=== PATIENT | male | born 1965 | race Caucasian/White ===

== ENCOUNTER 2024-11-28 08:37 | Inpatient (IN) | payer BC, SELFPAY ==
[2024-11-28] VITALS (9 sets, daily range): BP systolic 128–163; BP diastolic 63–90; BMI 33.7
[2024-11-28] MEDS: NSS 1000 IV ×3 (04:16→21:23)
[2024-11-28 04:31] LABS: % Basophils 0.4 % (0-2); % Eosinophils 3.1 % (0-6); % Immature Granulocytes 0.4 % (0-0.5); % Lymphocytes 28.7 % (20.5-51.1); % Neutrophils 63.4 % (42.2-75.2); Absolute Eosinophils 0.3 10^3/uL (0-0.7); Absolute Monocytes 0.4 10^3/uL (0.1-0.6); Absolute Neutrophils 6.6 10^3/uL (1.4-6.5); Hematocrit 41.5 % (39.0-52.0); Hemoglobin 13.7 g/dL (13.0-18.0); Mean Corpuscular Hgb 28.2 pg (27.0-31.0); Mean Corpuscular Volume 85.6 fL (80.0-94.0); Mean Platelet Volume 11.3 fL (7.4-10.4); Nucleated Red Blood Cells % 0 % (-); Platelet Count 184 10^3/uL (130-400); Red Blood Cell Count 4.85 10^6/uL (4.70-6.10); Red Cell Dist. Width 12.3 % (11.5-14.5); White Blood Cell Count 10.5 10^3/uL (4.8-10.8)
[2024-11-28 04:39] LABS: APTT 26.2 Sec (23.4-35.0); INR 0.91; PT 12.8 Sec (11.4-14.6)
[2024-11-28 04:54] LABS: ALT (SGPT) 25 U/L (0-50); AST (SGOT) 25 U/L (17-59); Albumin 4.3 g/dl (3.5-5.0); Alkaline Phosphatase 67 U/L (38-126); Blood Urea Nitrogen 17 mg/dl (9-20); Calcium 8.2 mg/dl (8.4-10.2); Carbon Dioxide 25 mmol/L (22-30); Chloride 102 mmol/L (98-107); Estimated Creatinine Clearance 115 ml/min; Glucose 174 mg/dl (70-99); Lipase 122 U/L (23-300); Potassium 3.4 mmol/L (3.5-5.1); Sodium 140 mmol/L (135-145); Total Bilirubin 0.4 mg/dl (0.2-1.3); Total Protein 6.8 g/dl (6.3-8.2); eGFR > 60.00
[2024-11-28] MEDS: ZOFRAN 4 MG IV ×2 (04:55→08:26)
[2024-11-28] MEDS: BENADRYL 25 MG IV (04:59)
[2024-11-28] MEDS: REGLAN 10 MG IV (05:00)
[2024-11-28 05:02] LABS: Troponin I < 0.012 ng/ml
[2024-11-28] MEDS: ANTIVERT 25 MG PO (06:09)
--- NOTE | 2024-11-28 07:07 | ED.GENMED ---
History of Present Illness
General
Chief Complaint: Abdominal Symptoms
Source: patient and ambulance crew
Exam Limitations: none
Time Seen by Provider: 11/28/24 04:52
Nursing documentation reviewed up to this point in time: agreed with
History of Present Illness
History of Present Illness:
59-year-old male brought in by [facility] ambulance for nausea, vomiting, and dizziness. Patient states that it came on suddenly the night before. Patient states that despite his best efforts he has not been able to keep anything down. He
presents to the emergency department for evaluation with his . He denies fever or chills. Reports only abdominal pain when vomiting.
Past History
Past History
ED Past Medical History: GERD
ED Past Surgical History: Tonsilectomy and Other (Back cyst removal)
Social History
Tobacco: Non-smoker
Alcohol: Occasional
Drug: None
Personal:
Living: with family
Employment: Employed
Family History
Family History: Other
Phy Exam
General Physical Exam
General Presentation: well appearing and mild distress
General age: appears stated age
General Skin: warm and dry
General Habitus: normal
General Mental: alert
General Hydration: appears well hydrated
ENT Exam
ENT Exam: EOMI, pharynx normal, neck supple and normocephalic
Eye Exam
Eye Exam: PERRL, cornea clear and conjunctiva normal
Cardiovascular Exam
Cardiovascular Exam: regular rate/rhythm, no edema, no murmur, normal peripheral pulses and tachycardia
Pulmonary Exam
Pulmonary Exam: lungs clear, no respiratory distress, no rales, no crackles, no rhonchi, no stridor, no wheezing and no cough
Gastrointestinal Exam
Gastrointestinal Exam: normal bowel sounds, non tender, soft, no organomegaly, no pulsatile mass and non distended
Neurological Exam
Neurological Exam: alert, oriented x3, no motor deficits and speech normal
Musculoskeletal Exam
Musculoskeletal Exam: full ROM and no edema
Skin Exam
Skin Exam: normal color, warm/dry, no rash and no petechia
Psychiatric Exam
Psychiatric Exam: normal mood/affect
Course
Orders/Labs/Results
Orders:
Orders
11/28/24 03:51
EKG [Electrocardiogram (*1)] Urgent
Reason for Study: Other
Other Reason for Exam: nausea/vomiting
11/28/24 03:52
EKG- Treatment ONCE
11/28/24 04:04
0.9% Sodium Chloride 1000 ml [Nss] 1,000 ml IV BOLUS
11/28/24 04:11
Complete Blood Count/With Diff Urgent
Comprehensive Metabolic Panel Urgent
Lipase Urgent
Magnesium Urgent
Comment: ADD ON
PTT Urgent
Prothrombin Time Urgent
Troponin I Urgent
Influenza A+B Rapid Molecular Urgent
JAK Source: Nasal Swab
Specimen Description:
11/28/24 04:26
Ondansetron Injectable [Zofran] 4 mg .ROUTE .STK-MED ONE
11/28/24 04:52
Diphenhydramine [Benadryl] 25 mg IV NOW STA
Metoclopramide [Reglan] 10 mg IV NOW STA
11/28/24 04:54
Diphenhydramine [Benadryl] 50 mg .ROUTE .STK-MED ONE
Metoclopramide [Reglan] 10 mg .ROUTE .STK-MED ONE
11/28/24 04:55
Ondansetron Injectable [Zofran] 4 mg IV NOW STA
11/28/24 06:03
Meclizine [Antivert] 25 mg PO NOW STA
11/28/24 06:25
CT Head W/o Iv Contrast Urgent
Comment:
Reason For Exam: intractable n/v. normal labs, dizziness
11/28/24 07:29
Add On- LAB Routine
Tests Added?: Mag level
Potassium Chloride [KCl] 40 meq 0.9% Sodium Chloride 250 ml [Nss] 250 ml IV NOW
11/28/24 08:11
Admit/Transfer Patient As Directed
Co-Sign Provider:
Level of Care: Inpatient admission
Assign to:: Medical/Surgical
Physician / Group: Cassie/hospitalist
Diagnosis: N/V/dizziness
Reason for Hospitalization: N/V/dizziness
Expected length of stay greater than two midnights?: Yes
ELOS- Estimated Length of Stay in days: 3
I certify the patient meets the requirements for IP care: Yes
11/28/24 08:12
Code Status As Directed
Resuscitation Status: Full Code
PRN Pain Medication Management As Directed
May give lesser potent ordered pain med per pt: Yes
preference::
Protocol:: Medication orders for pain may be administered in a
manner that supports deferring to patient preference
when the pt is:
- Requesting an ordered lesser potent pain medication.
Least to most potent pain medications are defined
as: acetaminophen < NSAID < tramadol < opioids
(morphine, oxycodone, hydromorphone).
- Requesting a lesser dose of the same medication IF
ORDERED.
- Requesting a less intrusive route of administration
if both routes are prescribed by the provider (PO <
IV).
11/28/24 08:24
Ondansetron Injectable [Zofran] 4 mg IV Q6HPRN PRN
11/28/24 08:34
COVID-19 Antigen Routine
Source: Nasal Swab
11/28/24 08:46
0.9% Sodium Chloride 1000 ml [Nss] 1,000 ml IV 100 mls/hr
11/28/24 08:48
Acetaminophen [Tylenol] 650 mg PO Q6HPRN PRN
Bisacodyl [Dulcolax] 10 mg RECTAL [id number] PRN
Docusate W/Senna [Senokot-S] 1 tablet PO BIDPRN PRN
Polyethylene Glycol Powder [Miralax] 17 grams PO DAILYPRN PRN
11/28/24 08:48
Activity As Directed
Activity Level: As Tolerated
Vital Signs As Directed
Frequency: Per unit guidelines
DX Deep Vein Thrombosis Video Routine
11/28/24 09:00
Pantoprazole [Protonix IV] 40 mg IV DAILY
11/28/24 16:35
Urine Drug Abuse Screen Routine
Date Specimen was Collected: 11/28/24
Time Specimen was Collected: 16:32
11/28/24 18:00
Enoxaparin Sodium [Lovenox] 40 mg SC QPM
11/29/24 07:25
Complete Blood Count/No Diff IN AM
Comprehensive Metabolic Panel IN AM
Magnesium IN AM
Abnormal Lab Results
11/28/24
04:11
MPV 11.3 H fL
(7.4-10.4)
Absolute Neuts (auto) 6.6 H 10^3/uL
(1.4-6.5)
Potassium 3.4 L mmol/L
(3.5-5.1)
Glucose 174 H mg/dl
(70-99)
Calcium 8.2 L mg/dl
(8.4-10.2)
11/28/24 04:11
11/28/24 04:11
Vital Signs
Initial and Last Documented VS:
Initial Vital Signs
Pulse Resp BP Pulse Ox
47 16 151/84 95
11/28/24 03:55 11/28/24 03:55 11/28/24 03:55 11/28/24 03:55
Last Documented Vital Signs
Temp Pulse Resp BP Pulse Ox
98.0 F 55 16 140/73 98
11/30/24 07:19 11/30/24 07:19 11/30/24 07:19 11/30/24 07:19 11/30/24 07:19
*Radiology
Radiology exam reviewed: all reviewed NAD by ED Provider
*Pulse Oximetry
Patient hypoxic: no
*EKG
Interpreted by ED Provider?: Yes
EKG Intrepretation Date: 11/28/24
Heart Rate: 48
Rate: bradycardiac
Rhythm: sinus
Miles: normal axis
Interval: normal interval
QRS Pattern: normal QRS
Ischemia: no ischemia
*[place] Interpretation
Rate: bradycardiac
Rhythm: sinus
*Critical Care Note
Total Time (30-74mins, 75-104mins- exclusive of procedures): Not Applicable
ED Attending Note
-
Portions of this chart may have been created with voice recognition software.� Occasional wrong word or��sound alike� substitutions may have occurred due to the inherent limitations of voice recognition software.
Discharge Plan
Departure
Patient Disposition: Admit
Date of Disposition: 11/28/24
Time of Disposition: 07:07
Admit to: Telemetry
Presentation/result/management discussed w/ accepting MD/DO: Hospitalist
Condition: Good
Discharge Problem:
Intractable nausea and vomiting, Syncope, Acute hypotension, Dizziness
Interventions
Interventions:
*Risk Screen - Suicide Last Done: 11/28/24 04:02
*General Assessment Last Done: 11/28/24 04:01
*ED COVID-19 Vaccine History Last Done: 11/28/24 04:00
*Nursing Disposition Last Done: 11/28/24 13:01
TG-Uyszkx-Ehragchuox Assessment Last Done: 11/28/24 09:50
Discharge Date and Time
Discharge Date/Time: 11/28/24 13:02
--- NOTE | 2024-11-28 07:54 | HPS.HSE ---
Family Physician
-
Family Physician: Ramirez Jacobs
Chief Complaint
-
N/D/dizziness
History of Present Illness
HPI: 59-year-old male, PMH GERD, presented with nausea, vomiting and dizziness. Symptoms started the evening prior admission.
He was not able to keep anything down and due to persistent symptom, he decided to come to the ED.
He denies to fever/chills, abd pain, change in BM etc.
Medical History
Past Medical History
Past Medical History: Reports GERD
Past Surgical History: Reports Other
Social History
Tobacco: Non-smoker
Alcohol: Occasional
Personal:
Living: With Family
Family History
Family History: Not pertinent
Allergies / Home Medications
Allergies reflects when Allergies were last updated in [employer].
Home Medications with original date entered in [employer]
Allergy/Medication List:
Allergies
Allergy/AdvReac Type Severity Reaction Status Date / Time
No Known Allergies Allergy Verified 06/01/21 11:15
Home Medications
acetaminophen 325 mg tablet (Tylenol) 650 mg PO Q6HPRN PRN mild pain 11/28/24
omeprazole 20 mg tablet,delayed release 20 mg PO DAILY 11/28/24
therapeutic multivitamin 1 tab PO DAILY 11/28/24
Review of Systems
-
Abdomen/GI: Reports See HPI, Nausea and Vomiting; Denies Abdominal Pain
Neurological: Reports Dizzy
Physical Exam
Vital Signs
Vital Signs
Pulse Resp BP Pulse Ox
68 24 145/82 97
11/28/24 06:30 11/28/24 06:30 11/28/24 06:00 11/28/24 05:48
Physical Exam
General: Well Developed, Well Nourished, No Apparent Distress and Conversant
HEENT: NormoCephalic, Moist mucous membranes and Atraumatic
Respiratory: Clear and Non Labored Respirations; No Accessory Resp Muscle Use
Cardiac: S1/S2 and Regular Rhythm; No Murmur or Rub
GI: Soft, Non Tender, Non Distended and Normal Bowel Sounds; No Organomegaly
Rectal: Deferred by Provider
Musculoskeletal: No Clubbing, No Cyanosis and No Edema
Skin: No Rash
Neuro: Awake and Alert
Psych: Calm and Intact Judgment/Insight
Laboratory Results
-
11/28/24 04:11
11/28/24 04:11
Laboratory Results
PT 12.8 Sec (11.4-14.6) 11/28/24 04:11
INR 0.91 11/28/24 04:11
APTT 26.2 Sec (23.4-35.0) 11/28/24 04:11
Total Bilirubin 0.4 mg/dl (0.2-1.3) 11/28/24 04:11
AST 25 U/L (17-59) 11/28/24 04:11
ALT 25 U/L (0-50) 11/28/24 04:11
Alkaline Phosphatase 67 U/L (38-126) 11/28/24 04:11
Troponin I < 0.012 ng/ml 11/28/24 04:11
Lipase 122 U/L (23-300) 11/28/24 04:11
Data Reviewed
-
Lab Data: Labs Reviewed by me
Impression/Plan
-
HPI: 59-year-old male, PMH GERD, presented with nausea, vomiting and dizziness. Symptoms started the evening prior admission.
He was not able to keep anything down and due to persistent symptom, he decided to come to the ED.
He denies to fever/chills, abd pain, change in BM etc.
A/P:
# Nausea/vomiting/dizziness
CT head: no acute abnormality.
Check Flu and COVID
Zofran as needed
N.p.o. for now, gentle IVF
Check UDS
# Hypokalemia
Replete
# GERD
use IV PPI with N/V
DVT ppx: Lovenox SQ
FC
[2024-11-28 08:06] LABS: Magnesium 1.7 mg/dl (1.6-2.3)
[2024-11-28] MEDS: KCL 270 MEQ IV (08:27)
[2024-11-28 09:19] LABS: COVID-19 Antigen Negative (Negative)
[2024-11-28] MEDS: PROTONIX IV 40 MG IV (09:53)
[2024-11-28] MEDS: NSS (PRESERVATIVE FREE) 10 ML IV (09:53)
[2024-11-28 16:59] LABS: Amphetamines Negative (Negative); Barbiturates Negative (Negative); Benzodiazepines Negative (Negative); Buprenorphine Negative (Negative); Cocaine Negative (Negative); Marijuana Negative (Negative); Methadone Negative (Negative); Methamphetamines Negative (Negative); Opiates Negative (Negative); Phencyclidine Negative (Negative); Tricyclic Antidepressants Negative (Negative)
[2024-11-29 06:00] VITALS: BMI 32.6
[2024-11-29 07:00] VITALS: BP 151/77
[2024-11-29 07:45] LABS: Hematocrit 39.3 % (39.0-52.0); Hemoglobin 13.8 g/dL (13.0-18.0); Mean Corp Hgb Conc. 35.1 g/dL (33.0-37.0); Mean Corpuscular Hgb 29.7 pg (27.0-31.0); Mean Corpuscular Volume 84.5 fL (80.0-94.0); Mean Platelet Volume 11.1 fL (7.4-10.4); Platelet Count 172 10^3/uL (130-400); Red Blood Cell Count 4.65 10^6/uL (4.70-6.10); Red Cell Dist. Width 12.5 % (11.5-14.5); White Blood Cell Count 14.9 10^3/uL (4.8-10.8)
[2024-11-29 08:12] LABS: ALT (SGPT) 22 U/L (0-50); AST (SGOT) 23 U/L (17-59); Alkaline Phosphatase 63 U/L (38-126); Blood Urea Nitrogen 11 mg/dl (9-20); Calcium 7.9 mg/dl (8.4-10.2); Carbon Dioxide 28 mmol/L (22-30); Chloride 103 mmol/L (98-107); Estimated Creatinine Clearance 113 ml/min; Glucose 103 mg/dl (70-99); Magnesium 1.9 mg/dl (1.6-2.3); Potassium 3.7 mmol/L (3.5-5.1); Sodium 141 mmol/L (135-145); Total Bilirubin 0.5 mg/dl (0.2-1.3); Total Protein 6.3 g/dl (6.3-8.2); eGFR > 60.00
[2024-11-29] MEDS: NSS 1000 IV (08:45)
[2024-11-29] MEDS: NSS (PRESERVATIVE FREE) 10 ML IV (08:49)
[2024-11-29] MEDS: PROTONIX IV 40 MG IV (08:49)
[2024-11-29 15:00] VITALS: BP 143/76
--- NOTE | 2024-11-29 15:55 | CM ---
Initial assessment completed with patient at bedside
Pharmacy verified; [facility] [address]
Patient and spouse live in multilevel home; railings on stairs; powder room 1st floor
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
NO SNF or Home Health utilization
will transport home
Plan: discharge to home if medically stable and tolerates diet
--- NOTE | 2024-11-29 16:05 | W.PN.HOSP.TC ---
Today's Communication/Plan
-
stop IVF
advance diet
Assessment / Plan
Assessment / Plan
pt is a 59 year old male
Nausea/vomiting/dizziness --resolved--likely viral illness--head CT neg--advance diet--stop IVF
Hypokalemia--Replete
GERD--use IV PPI with N/V
DVT ppx: Lovenox SQ
code status--full code
hopeful d/c tomorrow
Anticipated Discharge: Within 24 hours
Subjective/Interval History
-
Date of Service: November 29, 2024
pt no longer dizzy or n/v
Objective Data
-
Labs:
Laboratory Results
11/29/24
07:25
WBC 14.9 H
Hgb 13.8
Hct 39.3
Plt Count 172
Sodium 141
Potassium 3.7
Chloride 103
Carbon Dioxide 28
BUN 11
Creatinine 0.9
Glucose 103 H
Calcium 7.9 L
Total Bilirubin 0.5
AST 23
ALT 22
Alkaline Phosphatase 63
Vital Signs:
max temp for 24 hours
11/28/24
23:24
Temp 99 F
Vital Signs
Temp Pulse Resp BP Pulse Ox
98.0 F 65 18 151/77 94
11/29/24 07:00 11/29/24 07:00 11/29/24 07:00 11/29/24 07:00 11/29/24 07:00
I&O
11/28/24 11/29/24 11/30/24
06:59 06:59 06:59
Intake Total 1200 / 1200
Output Total 2100 / 2099
Balance -900 / -900
Review of Systems
-
All other systems: Reviewed and negative
Physical Exam
-
General: Well Developed, Well Nourished and No Apparent Distress
HEENT: Normocephalic and Atraumatic
Respiratory: Clear to Auscultation; Negative Wheezes or Rhonchi
Cardiac: Regular Rhythm and S1/S2; Negative Murmur
GI: Soft, Nontender, Nondistended and Normal Bowel Sounds
Musculoskeletal: No Clubbing, No Cyanosis and No Edema
Neuro: Awake and Alert
Psych: Calm
[2024-11-29] MEDS: NSS IV (16:17)
[2024-11-29 23:00] VITALS: BP 147/80
[2024-11-30 07:19] VITALS: BP 140/73
[2024-11-30] MEDS: NSS (PRESERVATIVE FREE) 10 ML IV (07:54)
[2024-11-30] MEDS: PROTONIX IV 40 MG IV (07:55)
--- NOTE | 2024-11-30 10:28 | W.PN.HOSP.TC ---
Today's Communication/Plan
-
d/c
Assessment / Plan
Assessment / Plan
pt is a 59 year old male
Nausea/vomiting/dizziness --resolved--likely viral illness--head CT neg--tolerated diet--stop IVF--ask PT eval for BPPV
Hypokalemia--Replete
GERD--use IV PPI with N/V
DVT ppx: Lovenox SQ
code status--full code
hopeful d/c
Anticipated Discharge: Today
Subjective/Interval History
-
Date of Service: November 30, 2024
pt tells me his head is still heavy and mildly dizzy
Objective Data
-
Vital Signs:
max temp for 24 hours
11/29/24
23:00
Temp 99.0 F
Vital Signs
Temp Pulse Resp BP Pulse Ox
98.0 F 55 16 140/73 98
11/30/24 07:19 11/30/24 07:19 11/30/24 07:19 11/30/24 07:19 11/30/24 07:19
I&O
11/29/24 11/30/24 12/01/24
06:59 06:59 06:59
Intake Total 1200 / 1200 2520 / 2520
Output Total 2099 / 2099
Balance -900 / -900 2520 / 2520
Review of Systems
-
All other systems: Reviewed and negative
Neuro: Reports Dizzy
Physical Exam
-
General: Well Developed, Well Nourished and No Apparent Distress
HEENT: Normocephalic and Atraumatic
Respiratory: Clear to Auscultation; Negative Wheezes or Crackles
Cardiac: Regular Rhythm and S1/S2; Negative Murmur
GI: Soft, Nontender, Nondistended and Normal Bowel Sounds
Musculoskeletal: No Clubbing, No Cyanosis and No Edema
Skin: Warm
Neuro: Awake
Psych: Calm
--- NOTE | 2024-11-30 11:44 | CM ---
Plan: discharge to home today; no needs; has transport home
[2024-11-30 12:05] VITALS: BP 165/96; PULSE 60; O2SAT 96
--- NOTE | 2024-11-30 14:52 | W.DCSUMMARY ---
Discharge Summary
Discharge Data
Date of Admission: 11/28/24
Date of Discharge: 11/30/24
-
Pending Results: No
Hospital Course
Primary care physician : Ramirez Jacobs
Principal Discharge diagnosis : Nausea/vomiting/dizziness, hypokalemia
Chronic Discharge diagnosis : Gastroesophageal reflux disease
Hospital Course : Patient is a 59-year-old male who presented with nausea, vomiting, and dizziness. Patient stated that the symptoms started the evening prior to admission. He was not able to keep anything down and due to persistent symptoms
presented to the emergency department. He denied any fevers, chills, abdominal pain, diarrhea or any other symptoms. Patient was admitted.
Problem #1: Nausea/vomiting/dizziness. CAT scan of his head done in the emergency department was negative. This was very likely related to a viral illness. With IV fluids his symptoms improved. He was tolerating a diet. On the morning of
discharge, patient stated that he started feeling a bit dizzy with head heaviness again. He was seen in consultation by physical therapy for vestibular evaluation. This was deemed to be negative but they did recommend outpatient vestibular
physical therapy for which I provided a prescription. I also sent him with a few tablets of meclizine to help from a symptomatic standpoint. This will likely resolve on its own if related to viral illness.
Problem #2: Hypokalemia. This was repleted as necessary.
Problem #3: Gastroesophageal reflux disease. Patient was continued on pantoprazole while in the hospital. He can restart his omeprazole at discharge.
Patient is stable for discharge home at this time. If there are any questions regarding this dictation or his hospital stay, please not hesitate to call. Our office number is [phone].
Important imaging findings :
CT HEAD IMPRESSION:
1. No CT evidence for acute intracranial hemorrhage, intracranial mass, or obstructive hydrocephalus.
2. Mild Chiari I malformation.
Discharge Plan
-
Patient Disposition: Home (Routine Discharge)
Discharge Diagnosis/Procedures: Nausea, vomiting, dizziness (likely viral)-resolved, hypokalemia, gastroesophageal reflux disease
Condition: Good
Diet: As tolerated and Regular
Activity: As tolerated
Driving Restrictions: As prior to admission
Bathing Restrictions: None
Referrals:
Ramirez Jacobs MD [Family Provider] - in less than 1 week
Prescriptions:
New
meclizine 25 mg tablet
25 mg PO TID PRN (Reason: dizziness) Qty: 10 0RF
Continued
acetaminophen [Tylenol] 325 mg Tablet
650 mg PO Q6HPRN PRN (Reason: mild pain)
therapeutic multivitamin Tablet
1 tab PO DAILY
omeprazole 20 mg Tablet,Delayed Release (Dr/Ec)
20 mg PO DAILY Qty: 0 0RF
Discharge Orders:
Discharge Patient (As Directed); Ordered 11/30/24
Ordered By: Lala Rehman
Discharge Date and Time
Discharge Date/Time: 11/30/24 12:49
Print Language: ALBANIAN
== END 2024-11-30 12:49 | disposition home or self-care (01) | DRG 193 ==
LOC: 3 WEST ACU 08:37
PROVIDERS: ADMITTING PHYSICIAN Internal Medicine; ATTENDING PHYSICIAN Internal Medicine; EMERGENCY PHYSICIAN Student in an Organized Health Care Education/Training Program; FAMILY PHYSICIAN Family Medicine
DX: J10.1 Influenza due to other identified influenza virus with other respiratory manifestations (principal); G93.5 Compression of brain; E87.6 Hypokalemia; K21.9 Gastro-esophageal reflux disease without esophagitis; Z11.52 Encounter for screening for COVID-19
CPT/HCPCS: 70450; 80053; 80306; 83690; 83735; 84484; 85025; 85027; 85610; 85730; 87502; 87811; 93005; 96361; 96374; 96375; 97163; 99285

== ENCOUNTER 2024-12-01 09:54 | Outpatient (RCR) | payer BC, SELFPAY | END 2024-12-01 23:59 | disposition home or self-care (01) | LOC: RPT 09:54 | PROVIDERS: ATTENDING PHYSICIAN Family Medicine | DX: R42 Dizziness and giddiness (principal); Z73.6 Limitation of activities due to disability | CPT/HCPCS: 97112; 97163 ==